=== PATIENT | female | born 1965 | race Caucasian/White ===

== ENCOUNTER 2017-10-31 11:47 | Emergency (ER) | payer OTHER ==
[~2017-10-31] VITALS: Ht 162.6 cm; Wt 77.1 kg
[2017-10-31 11:52] VITALS: Ht 162.6 cm; Wt 77.1 kg
[2017-10-31 14:32] VITALS: BP 131/72
== END 2017-10-31 14:32 | disposition home or self-care (01) ==
LOC: ED 11:47
DX: J06.9 Acute upper respiratory infection, unspecified (principal)